=== PATIENT | female | born 1985 | race Caucasian/White ===

== ENCOUNTER 2021-07-02 11:53 | Observation (INO) | payer OTHER, SELFPAY ==
--- NOTE | ~2021-07-02 | XR_ITS ---
EXAMINATION: XR abdomen/kub 1V DATE: 07/04/2021 05:44 INDICATION: Abdominal pain TECHNIQUE: A supine view of the abdomen was obtained. COMPARISON: 07/03/2021 FINDINGS: Cholecystectomy clips in right upper quadrant. Suture lines in the left upper quadrant likely related to prior gastric bypass procedure. Small amount of gas scattered throughout nondilated large and sma ll bowel. IMPRESSION: 1. Nonspecific bowel gas pattern with no dilated gas-filled bowel to suggest obstruction. Reviewed, dictated and finalized at location A. INSPECTOR IMPRESSION: 1. Nonspecific bowel gas pattern with no dilated gas-filled bowel to suggest ob struction.
--- NOTE | ~2021-07-02 | XR_ITS ---
XR chest 1V portable 07/03/2021 15:04 Indication: Shortness of breath. Increasing oxygen requirement. Procedure: AP portable chest Comparison: No prior studies for comparison. Findings: Heart size normal. There is subtle left basilar airspace disease. No edema, pleural effusio n or pneumothorax. No acute osseous abnormality. Impression: 1: Subtle left basilar airspace disease which may represent atelectasis or developing pneumonia. Reviewed, dictated and finalized at location A. SEAMER Impression: 1: Subtle left basilar airspace disease which may represent atelectasis or deve loping pneumonia.
--- NOTE | ~2021-07-02 | XR_ITS ---
EXAMINATION: XR abdomen/kub 1V INDICATION: Small bowel obstruction TECHNIQUE: Supine views of the abdomen were obtained on 2 radiographs. COMPARISON: CT from yesterday FINDINGS: No definitely dilated loops of bowel are identified. The mid abdomen is relatively gasless which could reflect fluid-filled loops of bowel. Surgical changes are noted in the stomach. There are cholecystectomy clips. Contrast from yesterday's CT examination opacifies the urinary bladder. No fr ee intraperitoneal gas is identified. The visualized lung bases are clear. IMPRESSION: 1. No definitely dilated loops of bowel identified. Relatively gasless mid abdomen could reflect flui d-filled loops of bowel Reviewed, dictated and finalized at location A. DUMPER IMPRESSION: 1. No definitely dilated loops of bowel identified. Relatively gasless mid abdo men could reflect fluid-filled loops of bowel
--- NOTE | ~2021-07-02 | CT_ITS ---
EXAMINATION: CT abdomen pelvis w con DATE: 07/02/2021 15:31 INDICATION: Abdominal pain and nausea TECHNIQUE: Computed tomography (CT) of the abdomen and pelvis was performed with 100 cc Omnipaque 350 intravenous contrast. The dose-length product was 236.64 mGy-cm. Automated exposure control and iter ative reconstruction technique were employed. COMPARISON: None. FINDINGS: Lung bases are unremarkable. No significant pleural or pericardial effusion. Heart size is normal. There are surgical changes of gastric bypass surgery. There are cholecystectomy clips. There is a surgical anastomotic site in the right lower abdomen. There are mildly distended small bowel loo ps in the upper abdomen anteriorly. Possible transition in the right lower abdomen anastomotic site. Cannot exclude partial small bowel obstruction. Status post cholecystectomy. The liver, spleen, pancreas, adrenal glands and kidneys are unremarkable . No significant lymphadenopathy. No significant vascular abnormality. IMPRESSION: 1. Fluid-filled distended small bowel loops in the upper abdomen with possible transition in right lo wer abdominal surgical anastomotic site, suspicious for at least partial obstruction. Reviewed, dictated and finalized at location A. E ENGINEER IMPRESSION: 1. Fluid-filled distended small bowel loops in the upper abdomen with possible transition in right lower abdominal surgical anastomotic site, suspicious for a t least partial obstruction.
[2021-07-02 11:58] VITALS: BP 132/55; PULSE 77; RESP 16; TEMP 36.4; O2SAT 100
[2021-07-02 12:46] LABS: Basophils Percent Auto 0.4 % (0.2-1.2); Eosinophils Percent Auto 0.7 % (0-4.4); Hematocrit 39.1 % (37.0-47.0); Hemoglobin 13.4 g/dL (12.0-15.0); Immature Granulocyte Absolute 0.01 K/mm3 (0.00-0.031); Immature Granulocyte Percent A 0.2 % (0-0.5); Lymphocytes Absolute Auto 0.66 K/mm3 (0.9-3.2); Lymphocytes Percent Auto 14.7 % (18.3-44.2); Mean Corpuscular HGB Conc 34.3 g/dl (32-36); Mean Corpuscular Hemoglobin 29.6 pg (26-34); Mean Corpuscular Volume 86.3 fl (80-100); Mean Platelet Volume 8.7 fl (7.4-10.4); Monocytes Absolute Auto 0.2 K/mm3 (0.1-0.6); Monocytes Percent Auto 4.7 % (2.6-8.5); Neutrophils Absolute Auto 3.6 K/mm3 (1.3-6.7); Neutrophils Percent Auto 79.3 % (45.5-73.1); Platelet Count Result 186 k/mm3 (150-375); Red Blood Count 4.53 M/mm3 (4.2-5.4); Red Cell Distribution Width 12.7 % (11.5-14.5); White Blood Count 4.5 K/mm3 (4.5-10.0)
[2021-07-02] MEDS: PROMETHAZINE HCL 25 MG/ML AMPUL 12.5 MG IV PUSH ×2 (12:48→20:37)
[2021-07-02] MEDS: SODIUM CHLORIDE 0.9% IV 1,000 ML 999 ML IV CONT (12:48)
[2021-07-02 13:00] LABS: Alanine Aminotransferase 18 U/L (4-35); Albumin Level 4.7 g/dL (3.5-5.1); Alkaline Phosphatase 56 U/L (38-126); Anion Gap 12 mmol/L (8-16); Aspartate Amino Transferase 29 U/L (14-36); Bilirubin,Total 1.5 mg/dL (0.2-1.3); Blood Urea Nitrogen 18 mg/dL (7-17); Carbon Dioxide 25 mmol/L (22-30); Chloride 102 mmol/L (98-107); Estimated CRCL calculation 99 ml/min; Estimated Glomerular Filt Rate > 60; Glucose 109 mg/dL (65-110); Lipase 107 U/L (23-300); Potassium 3.5 mmol/L (3.4-5.0); Sodium 139 mmol/L (137-145)
--- NOTE | 2021-07-02 14:02 | PC.NURSE ---
Went into patient room to give anxiety medication per patient request. Patient was resting with eyes closed and appears comfortable. Medication not given at this time and returned to [facility].
[2021-07-02 14:48] LABS: Add Urine Microscopic? YES; Appearance Urine Cloudy (Clear); Bacteria Urine Trace /hpf; Bilirubin Urine Negative (Negative); Blood Urine Negative (Negative); Color Urine Yellow (Yellow); Glucose Urine UA Negative (Negative); Ketones Urine 2+ mg/dL (Negative); Leukocyte Esterase Ur Negative LEU/UL (Negative); Mucus Urine Few /lpf; Nitrate Urine Negative (Negative); Protein Urine 1+ mg/dL (Negative); Specific Grav Ur 1.021 (1.001-1.035); Squamous Epithelial Cell Urine Few /hpf (Few); WBC Urine 0-3 /hpf
--- NOTE | 2021-07-02 15:58 | ED.GENADULT ---
HPI - General Adult General Chief complaint: Unspecified Stated complaint: vomiting Time Seen by Provider: 07/02/21 12:12 History of Present Illness HPI narrative: Patient is a 35-year-old female who presents ER with epigastric pain and vomiting. Began today. Reports she has had episodes of this over the last 4 years. She had a Aamir-en-Y surgery in the past. She reports she was hospitalized last month at [facility] in which she was diagnosed with gastric and esophageal ulcers. She was placed on Protonix and sucralfate. Reports she had an EGD 2 weeks ago that showed resolution of the ulcerations. No fevers or chills or sweats. Symptoms not alleviated by home Zofran administration. Last bowel movement and last passage of gas was yesterday. Related Data Allergies Allergy/AdvReac Type Severity Reaction Status Date / Time amoxicillin Allergy Rash Verified 07/02/21 11:57 azithromycin Allergy Unknown Verified 07/02/21 11:57 Review of Systems Review of Systems: All systems reviewed & are unremarkable except as noted in HPI and below Constitutional: Constitutional: Denies chills, Denies fatigue and Denies fever(s) ENT: Denies nasal congestion and Denies sore throat Respiratory: Respiratory: Denies cough and Denies dyspnea Gastrointestinal: Gastrointestinal: Reports abdominal pain, Reports GI cramping, Denies diarrhea, Reports nausea and Reports vomiting Genitourinary: Genitourinary: Denies dysuria, Denies flank pain and Denies urinary urgency Psychiatric: Psychiatric: Reports anxiety PMFSH Past Medical History Medical History (Updated 07/02/21 @ 18:31 by Joseph Lazo MD) Anxiety Gastric ulcer Surgical History Surgical History (Updated 07/02/21 @ 18:31 by Joseph Lazo MD) History of Aamir-en-Y gastric bypass Social History Social History (Updated 07/02/21 @ 18:32 by Joseph Lazo MD) Smoking status: Never smoker Exam Narrative: GENERAL: Uncomfortable-appearing, well-nourished, and in mild distress. HEAD: Normocephalic, atraumatic. EYES: PERRL and EOMI. ENT: Mucous membranes moist. CHEST: Clear to auscultation. No respiratory distress. HEART: Regular rate and rhythm. Normal peripheral pulses. ABDOMEN: Soft, epigastric tenderness, nondistended. EXTREMITIES: Normal range of motion. No edema. SKIN: Warm, dry, no rash. NEURO: Alert and oriented x3. PSYCH: Normal mood and affect. Course Course Emergency Course: Patient informed of imaging results. Discussed case with Dr. Reeves. He is evaluated patient in the ER. NG tube attempted but patient did not tolerate the procedure and it can never be passed beyond the nasopharynx. Patient will be kept n.p.o., will be hydrated, and be given anxiety/antiemetic medication. Vital Signs Vital signs: Vital Signs Temperature 97.6 F 07/02/21 11:58 Pulse Rate 77 07/02/21 11:58 Respiratory Rate 16 07/02/21 11:58 Blood Pressure 132/55 L 07/02/21 11:58 Pulse Oximetry 100 07/02/21 11:58 Temperature 97.9 F 07/02/21 18:22 Pulse Rate 58 L 07/02/21 18:22 Respiratory Rate 14 07/02/21 18:22 Blood Pressure 104/58 L 07/02/21 18:22 Pulse Oximetry 100 07/02/21 18:22 Medical Decision Making Vital Signs Vital Signs: Vital Signs Temperature 97.6 F 07/02/21 11:58 Pulse Rate 77 07/02/21 11:58 Respiratory Rate 16 07/02/21 11:58 Blood Pressure 132/55 L 07/02/21 11:58 Pulse Oximetry 100 07/02/21 11:58 Temperature 97.9 F 07/02/21 18:22 Pulse Rate 58 L 07/02/21 18:22 Respiratory Rate 14 07/02/21 18:22 Blood Pressure 104/58 L 07/02/21 18:22 Pulse Oximetry 100 07/02/21 18:22 Lab Data Result diagrams: 07/02/21 12:41 07/02/21 12:41 Labs: Lab Results 07/02/21 07/02/21 07/02/21 Range/Units 12:41 12:41 14:23 WBC 4.5 (4.5-10.0) K/mm3 RBC 4.53 (4.2-5.4) M/mm3 Hgb 13.4 (12.0-15.0) g/dL Hct 39.1 (37.0-47.0) % MCV 86.3 (80-100) fl MCH 29.6
[2021-07-02 16:35] VITALS: BP 118/79; PULSE 54; RESP 14; O2SAT 100
[2021-07-02] MEDS: ONDANSETRON INJ 4 MG/2 ML VIAL IV PUSH (17:10)
[2021-07-02] MEDS: LORazepam INJ (*CRX) 2 MG/ML VIAL 0.5 MG IV PUSH (17:38)
--- NOTE | 2021-07-02 18:00 | PC.NURSE ---
Attempted to place NG tube in patient at this time per order. Patient continues to pull away prior to this nurse being able to place NG tube. Patient reports it hurts and she is unable to do it. Dr. Lazo made aware of this.
--- NOTE | 2021-07-02 18:03 | PM.CNGS ---
Assessment and Plan Assessment and plan (1) Partial small bowel obstruction: Code(s): K56.600 - Partial intestinal obstruction, unspecified as to cause Status: Acute Assessment and Plan: admit for observation, bowel rest, may need NG decompression, IV hydration, repeat imaging in am History of Present Illness Consult details Consult date: 07/02/21 Reason for consult: abdominal pain Requesting physician: Jalil Villa MD Narrative: The patient is a 35-year-old female presenting to the emergency department complaining severe crampy abdominal pain. The patient reports associated nausea and anorexia. Patient reports pain is mostly diffuse in nature and comes in waves. The patient denies any emesis however has been having dry heaves. The patient has a history of a Aamir-en-Y gastric bypass in the past. The patient reports milder similar symptom in the past but nothing this severe. The patient reports she had a normal bowel movement yesterday. Review of Systems Constitutional: Constitutional: Reports anorexia, Reports body ache(s), Denies chills, Reports fatigue, Denies fever(s), Reports lethargy, Reports malaise, Reports poor appetite, Reports weakness, Denies weight gain and Denies weight loss Eyes: Eyes: Reports no additional eye complaints ENT: Reports system reviewed and no additional complaints, except as documented Cardiovascular: Cardiovascular: Reports no additional cardiovascular complaints Respiratory: Respiratory: Reports no additional respiratory complaints Gastrointestinal: Gastrointestinal: Reports as per HPI, Reports abdominal pain, Reports belching, Reports bloating, Denies change in stool character, Reports GI cramping, Reports early satiety, Reports loose stools, Reports nausea and Denies vomiting Genitourinary: Genitourinary: Reports no additional female genitourinary complaints Musculoskeletal: Musculoskeletal: Reports no additional musculoskeletal complaints Integumentary/Breasts: Skin/Breast: Reports system reviewed and no additional complaints, except as docu Neurologic: Reports system reviewed and no additional complaints, except as documented Psychiatric: Psychiatric: Reports no additional psychiatric complaints Endocrine: Endocrine: Reports no additional endocrine complaints Hematologic/Lymphatic: Hematologic/Lymphatic: Reports no additional hematologic/lymphatic complaints Allergic/Immunologic: Allergic/Immunologic: Reports no additional allergic/immunologic complaints PMFSH Comments PMH - h/o gastric bypass Surgical history - gastric bypass, cholecystectomy FH - no FH colorectal cancers, IBD SH - no tob, illicit drug use Meds Home Medications and Allergies Allergies Allergy/AdvReac Type Severity Reaction Status Date / Time amoxicillin Allergy Rash Verified 07/02/21 11:57 azithromycin Allergy Unknown Verified 07/02/21 11:57 Vital Signs Vital Signs - 24 hr 07/02/21 11:58 07/02/21 16:35 Temperature 36.4 C Pulse Rate 77 54 L Respiratory Rate 16 14 Blood Pressure 132/55 L 118/79 Pulse Oximetry 100 100 Exam Const: General: cooperative, alert, awake, Physically active, acute distress moderate, ill appearing and uncomfortable Nutritional Appearance: average body habitus Orientation/consciousness: patient oriented x3 Limitations: no limitations HENMT: Head: normal to inspection, No palpable skull fracture present, normocephalic and atraumatic Ears: hearing grossly normal bilaterally General nose exam: Normal external nose present Face and sinus: normal facial exam Mouth: Yes Normal oral and palatal mucosa present and Yes moist mucous membranes Eyes: General: appearance normal, both eyes and all related structures Pupils: Equal, round and reactive pupils present EOM: EOMs intact bilaterally Neck: Neck: normal visual inspection, full ROM and no lymphadenopathy Chest: Chest palpation & inspection: normal inspection of the chest Resp: Effort & Inspect
[2021-07-02 18:22] VITALS: BP 104/58; PULSE 58; RESP 14; TEMP 36.6; O2SAT 100
--- NOTE | 2021-07-02 18:45 | ADMGEN ---
This patient, Penny Yusuf, was admitted to [facility] Surg Room 313-01 at 1711. Patient/family oriented to hospital policies and general routines including ID bracelet, bed and alarms, visiting hours, pain management, procedures, bathroom and other care routines, personal items, smoking policy, room service/diet, and visiting hours. Information on how to activate the Rapid Response Team has been discussed. Patient/Family are encouraged to report perceived risks to care and to ask questions if they do not understand what they are told or what they should do.
[2021-07-02 19:01] VITALS: BMI 23.1
--- NOTE | 2021-07-02 19:45 | PM.IMHP ---
H&P: HPI History of Present Illness Date/Time: 07/02/21 19:45 Chief Complaint: Abdominal pain. Narrative: This is a very pleasant 35-year-old female with history of Aamir-en-Y gastric bypass who presented to the emergency department earlier today for evaluation of abdominal pain. She had gastric bypass in 2018 and since that time she has had intermittent issues with severe abdominal pain prompting her to be evaluated by several specialists with no definitive explanation. These episodes can last anywhere from 4 hours to multiple days at a time. Her pain typically starts in the epigastric/low chest region and she describes it as ?excruciating? although she has a difficult time further qualifying. She has been trialed on multiple medications including but not limited to nitroglycerin for possible esophageal spasms, oxycodone, PPIs, and antispasmodics without much benefit. 2 or 3 times a week she will smoke marijuana which seems to help the discomfort and nausea somewhat. She had her gallbladder removed not long ago with hopes that this would help her pain but [place] it did not. At time she is afraid to eat, worried that it may cause her pain to return. More recently she was hospitalized at [place] within the past 1 month at which time she had an upper endoscopy which demonstrated esophageal and gastric ulcerations and/or erosions for which she was started on sucralfate with resolution of said abnormalities on repeat EGD within the last couple of weeks. 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 She began not feeling well in the affirmative action specialist hours with recurrent pain as detailed above, nausea, and dry heaves. She was able to rest only a bit overnight and she attempted to go in to work this morning however she began vomiting with worsening pain and thus she was brought in today for evaluation. CT of the abdomen and pelvis showed fluid-filled distended small bowel loops in the upper abdomen with possible transition in the right lower abdominal surgical anastomotic site, suspicious for at least partial obstruction, and she is being admitted in this setting. NG tube insertion was attempted however the patient was not able to tolerate that. She continues to have discomfort however she has not had any further nausea, dry heaves, or vomiting. Her abdomen is not distended or bloated however she thinks that if she was able to belch that her pain may feel better. She had a bowel movement yesterday which was lose though she denies blood and mucus in the stool. Of note, the patient was recently referred to the [facility] and she has an upcoming appointment in August 2021. Review of Systems Review of Systems: Twelve systems were reviewed. No fever, chills, or sweats. No cold or flu symptoms. She denies cough and shortness of breath. No hematemesis, melena, or hematochezia. She denies significant GERD like symptoms. Except as documented, all other systems were reviewed and are negative. [facility] Past Medical History Medical History (Updated 07/02/21 @ 22:04 by Lucia Lunsford PA-C) Anxiety Gastric ulcer Surgical History Surgical History History of cholecystectomy History of incisional hernia repair x2 History of Aamir-en-Y gastric bypass (2018) Family History Family History (Updated 07/02/21 @ 22:00 by Lucia Lunsford PA-C) Mother Gastrointestinal complaints Social History Social History (Updated 07/02/21 @ 22:00 by Lucia Lunsford PA-C) Social History: The patient lives with her and 5 in 6-year-old children in [place]. 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 Former smoker. Smokes marijuana 2 to 3 nights a week. Drinks perhaps 1 to 2 alcoholic beverages a month. She designates her as her surrogate decision maker and she wishes to be a full code.
[2021-07-02 20:15] VITALS: RESP 14; O2SAT 98
[2021-07-02] MEDS: MORPHINE SULFATE (*CRX) 4 MG/ML INJ IV PUSH (20:37)
[2021-07-02] MEDS: SODIUM CHLORIDE 0.9% IV 1,000 ML 125 ML IV CONT (20:38)
[2021-07-02 21:37] VITALS: BP 110/64; PULSE 74; RESP 18; TEMP 36.4; O2SAT 99
[2021-07-02 23:11] VITALS: O2SAT 99
[2021-07-03 05:24] VITALS: BP 103/51; PULSE 69; RESP 18; TEMP 36.9; O2SAT 100
--- NOTE | 2021-07-03 08:27 | PM.PNGS ---
Progress Note: A&P Assessment and Plan (1) Partial small bowel obstruction: Code(s): K56.600 - Partial intestinal obstruction, unspecified as to cause Status: Acute Assessment and Plan: much improved, will slowly start and ADAT, home if august diet and having normal bowel fxn Subjective Subjective Date/Time Seen: 07/03/21 08:27 feels much better this am, mild soreness but improved, no further N/V Review of Systems Review of Systems: All systems reviewed & are unremarkable except as noted in HPI and below Exam Const: General: cooperative, comfortable and no acute distress Nutritional Appearance: average body habitus Resp: Effort & Inspection: normal respiratory effort Auscultation: clear to auscultation bilaterally Cardio: Rate: regular rate Rhythm: regular rhythm GI: Inspection: normal to inspection, non-distended and incision GI Palp: Yes Soft to palpation, Yes Tenderness to palpation present (GI), No Guarding due to palpation present (GI) and No Rigid due to palpation Other: minimal TTP, improved Objective Data Vital Signs Vital Signs: Vital Signs - 24 hr 07/02/21 11:58 07/02/21 16:35 07/02/21 18:22 Temperature 36.4 C 36.6 C Pulse Rate 77 54 L 58 L Respiratory Rate 16 14 14 Blood Pressure 132/55 L 118/79 104/58 L Pulse Oximetry 100 100 100 07/02/21 20:15 07/02/21 21:37 07/02/21 23:11 Temperature 36.4 C Pulse Rate 74 Respiratory Rate 14 18 Blood Pressure 110/64 Pulse Oximetry 98 99 99 07/03/21 05:24 Temperature 36.9 C Pulse Rate 69 Respiratory Rate 18 Blood Pressure 103/51 L Pulse Oximetry 100 Intake/Output Intake/Output: Intake & Output 06/30/21 07/01/21 07/02/21 07/03/21 23:59 23:59 23:59 23:59 Intake Total 1000 Balance 1000 Meds/Results Medications: Active Medications Generic Name Dose Route Start Last Admin Trade Name Freq PRN Reason Stop Dose Admin Acetaminophen 1,000 mg in 100 mls @ 400 mls/hr 07/02/21 16:41 Ofirmev 1,000 Mg Ivpb IVPB 07/03/21 16:40 Q6H PRN Mild Pain (1-3) or Fever Sodium Chloride 1,000 mls @ 75 mls/hr 07/02/21 16:45 07/02/21 20:38 Normal Saline Iv IV CONT 125 mls/hr .[id number] ESTEBAN Administration Lorazepam 0.5 mg 07/02/21 16:45 07/02/21 17:38 Lorazepam Inj (*Crx) 2 Mg/Ml Vial IV PUSH 0.5 mg Q6H PRN Administration Anxiety Morphine Sulfate 2 mg 07/02/21 22:09 Morphine Sulfate (*Crx) 2 Mg/Ml Inj IV PUSH Q4H PRN Pain Rated 7-10 Pantoprazole Sodium 40 mg 07/03/21 09:00 Pantoprazole Sodium Iv 40 Mg Vial IV PUSH QAM ESTEBAN Promethazine HCl 12.5 mg 07/02/21 16:41 07/02/21 20:37 Promethazine Hcl 25 Mg/Ml Ampul IV PUSH 12.5 mg Q6H PRN Administration Nausea Radiology Results: ITS Impressions Abdomen/Pelvis CT 07/02/21 15:34 IMPRESSION: 1. Fluid-filled distended small bowel loops in the upper abdomen with possible transition in right lower abdominal surgical anastomotic site, suspicious for at least partial obstruction. Abdomen X-Ray 07/03/21 07:57 IMPRESSION: 1. No definitely dilated loops of bowel identified. Relatively gasless mid abdomen could reflect fluid-filled loops of bowel Labs Labs: Laboratory Results - last 24 hr 07/02/21 07/02/21 07/02/21 12:41 12:41 14:23 WBC 4.5 RBC 4.53 Hgb 13.4 Hct 39.1 MCV 86.3 MCH 29.6 MCHC 34.3 RDW 12.7 Plt Count 186 MPV 8.7 Immature Gran % (Auto) 0.2 Neut % (Auto) 79.3 H Lymph % (Auto) 14.7 L [place] % (Auto) 4.7 Eos % (Auto) 0.7 Baso % (Auto) 0.4 Lymph # (Auto) 0.66 L [place] # (Auto) 0.2 Eos # (Auto) 0.0 Baso # (Auto) 0.0 Abs Immat Gran (auto) 0.01 Absolute Neuts (auto) 3.6 Absolute Nucleated RBC 0.0 Nucleated RBC % 0.0 Sodium 139 Potassium 3.5 Chloride 102 Carbon Dioxide 25 Anion Gap 12 BUN 18 H Creatinine 0.60 L Estim Creat Clear Calc 99 Estimated GFR > 60 Glucose
[2021-07-03] MEDS: SODIUM CHLORIDE 0.9% IV 1,000 ML 125 ML IV CONT (08:57)
[2021-07-03] MEDS: PANTOPRAZOLE SODIUM IV 40 MG VIAL IV PUSH (08:58)
--- NOTE | 2021-07-03 10:59 | PM.IMPN ---
Progress Note: A&P Assessment and Plan (1) Partial small bowel obstruction: Code(s): K56.600 - Partial intestinal obstruction, unspecified as to cause Status: Acute Assessment and Plan: Patient was found to have a partial small-bowel obstruction. Patient was unable to tolerate NG tube insertion. KUB this morning showed No definitely dilated loops of bowel identified. Relatively gasless mid abdomen could reflect fluid-filled loops of bowel She otherwise has been feeling well without any abdominal distension, no more nausea, vomiting at this time. Denies passing any gas or bowel movements today. She tried drinking a little bit of broth but had some abdominal symptoms and stopped, with relief of her symptoms. She states she would like some substance to her diet because she is ?hungry?. I will switch her to a full liquid diet. I told her do eat slowly and pay attention to her body in symptoms and if she has any concerns she needs to stop eating. Otherwise we will keep her on a full liquid diet until tomorrow Surgery evaluated the patient and did not recommend anything but conservative management at this time Continue conservative management. Continue light IV fluid hydration until she starts eating more consistently. (2) Gastroesophageal reflux disease: Code(s): K21.9 - Gastro-esophageal reflux disease without esophagitis Status: Acute Assessment and Plan: PPI IV (3) Anxiety: Code(s): F41.9 - Anxiety disorder, unspecified Status: Chronic Assessment and Plan: Switch to p.o. anxiety medications as needed Time Spent With Patient Time with patient: 25 - 35 minutes Subjective Date/time seen: 07/03/21 10:59 Interval history: Date of service 07/03/2021: Patient reports slight improvement. Currently she was sleeping and not having any pain, nausea or vomiting. She states she was you had some of her clear liquid diet in your stomach began ?gurgling?. She stopped eating and did not have any worsening symptoms. She denies passing any gas or bowel movements. Denies fever, chills, chest pain, shortness of breath, cough, leg swelling, calf pain, or any other symptoms at this time. Review of Systems Review of Systems: All systems reviewed & are unremarkable except as noted in HPI and below Exam Narrative: General: 35-year-old woman laying flat in bed sleeping. Easily arousable. Appears comfortable. In no acute distress. Skin: No jaundice or cyanosis. Good skin turgor. Neck: Full range of motion. Supple. Respiratory: Lungs are clear to auscultation bilaterally. No bony chest wall tenderness. Cardiovascular: The heart has a regular rate and rhythm without murmur. Lower extremities: No lower extremity edema. Distal pulses are easily palpated. No calf tenderness to palpation. Gastrointestinal: Active bowel sounds in the bilateral upper quadrants. The abdomen is otherwise soft, nontender and nondistended at this time. Psychiatric: Lucid and oriented. Memory intact. Neurologic: No focal deficits. Speech is clear. No facial drooping. Objective Data Vital Signs Vital Signs: Vital Signs - 24 hr 07/02/21 11:58 07/02/21 16:35 07/02/21 18:22 Temperature 97.6 F 97.9 F Pulse Rate 77 54 L 58 L Respiratory Rate 16 14 14 Blood Pressure 132/55 L 118/79 104/58 L Pulse Oximetry 100 100 100 07/02/21 20:15 07/02/21 21:37 07/02/21 23:11 Temperature 97.6 F Pulse Rate 74 Respiratory Rate 14 18 Blood Pressure 110/64 Pulse Oximetry 98 99 99 07/03/21 05:24 Temperature 98.5 F Pulse Rate 69 Respiratory Rate 18 Blood Pressure 103/51 L Pulse Oximetry 100 Intake/Output Intake/Output: Intake & Output 06/30/21 07/01/21 07/02/21 07/03/21 23:59 23:59 23:59 23:59 Intake Total 1000 1000 Balance 1000 1000 Meds/Results Medications: Active Medications Generic Name Dose Route Start Last Admin Trade Name Freq PRN Reason Stop Dose Admin Acetami
[2021-07-03] MEDS: ACETAMINOPHEN 325 MG TABLET 650 MG PO (12:57)
[2021-07-03] MEDS: ALPRAZolam (*CRX) 0.5 MG TABLET PO ×2 (13:03→23:31)
[2021-07-03 14:00] VITALS: BP 103/59; PULSE 67; RESP 18; TEMP 37.9; O2SAT 100
[2021-07-03 14:32] VITALS: TEMP 38
[2021-07-03] MEDS: CYANOCOBALAMIN 500 MCG TABLET PO (16:47)
[2021-07-03] MEDS: SERTRALINE HCL 50 MG TABLET 100 MG PO (16:47)
[2021-07-03] MEDS: SODIUM CHLORIDE 0.9% IV 1,000 ML 75 ML IV CONT (21:03)
[2021-07-03 22:00] VITALS: BP 112/61; PULSE 59; RESP 18; TEMP 36.5; O2SAT 100
[2021-07-03] MEDS: traZODone HCL 50 MG TABLET PO (23:31)
[2021-07-04] VITALS: BP 115/63; PULSE 67; RESP 18; TEMP 36; O2SAT 99
[2021-07-04 00:44] VITALS: O2SAT 99
[2021-07-04 04:00] VITALS: BP 110/65; PULSE 77; RESP 18; TEMP 36.5; O2SAT 97
[2021-07-04 08:00] VITALS: O2SAT 99
[2021-07-04 08:03] LABS: Hematocrit 33.1 % (37.0-47.0); Hemoglobin 11.1 g/dL (12.0-15.0); Mean Corpuscular HGB Conc 33.5 g/dl (32-36); Mean Corpuscular Hemoglobin 29.4 pg (26-34); Mean Corpuscular Volume 87.6 fl (80-100); Mean Platelet Volume 8.9 fl (7.4-10.4); Platelet Count Result 160 k/mm3 (150-375); Red Blood Count 3.78 M/mm3 (4.2-5.4); Red Cell Distribution Width 12.4 % (11.5-14.5); White Blood Count 3.5 K/mm3 (4.5-10.0)
[2021-07-04 08:19] LABS: Alanine Aminotransferase 13 U/L (4-35); Albumin Level 3.2 g/dL (3.5-5.1); Alkaline Phosphatase 39 U/L (38-126); Anion Gap 11 mmol/L (8-16); Aspartate Amino Transferase 21 U/L (14-36); Bilirubin,Total 0.7 mg/dL (0.2-1.3); Blood Urea Nitrogen 13 mg/dL (7-17); Carbon Dioxide 19 mmol/L (22-30); Chloride 111 mmol/L (98-107); Estimated CRCL calculation 117 ml/min; Estimated Glomerular Filt Rate > 60; Glucose 47 mg/dL (65-110); Potassium 3.5 mmol/L (3.4-5.0); Sodium 141 mmol/L (137-145)
[2021-07-04 08:32] VITALS: BP 108/57; PULSE 82; RESP 14; TEMP 36.7; O2SAT 98
[2021-07-04] MEDS: PANTOPRAZOLE SODIUM IV 40 MG VIAL IV PUSH (09:08)
[2021-07-04 09:09] LABS: Glucose Point of Care 78 mg/dl (65-105)
[2021-07-04] MEDS: CYANOCOBALAMIN 500 MCG TABLET PO (09:54)
[2021-07-04] MEDS: SERTRALINE HCL 50 MG TABLET 100 MG PO (09:54)
[2021-07-04 11:02] LABS: Glucose Point of Care 86 mg/dl (65-105)
[2021-07-04] MEDS: SODIUM CHLORIDE 0.9% IV 1,000 ML 75 ML IV CONT (12:56)
--- NOTE | 2021-07-04 14:19 | PM.DS ---
DS: Admitting Diagnosis Discharge Date 07/04/21 Admitting Diagnosis sbo DS: Discharge Diagnosis Discharge Diagnosis (1) Partial small bowel obstruction: Code(s): K56.600 - Partial intestinal obstruction, unspecified as to cause Status: Acute (2) Gastroesophageal reflux disease: Code(s): K21.9 - Gastro-esophageal reflux disease without esophagitis Status: Acute (3) Anxiety: Code(s): F41.9 - Anxiety disorder, unspecified Status: Chronic (4) Fever: Code(s): R50.9 - Fever, unspecified Status: Acute (5) Person under investigation for COVID-19: Code(s): Z20.822 - Contact with and (suspected) exposure to COVID-19 Status: Acute (6) Leukopenia: Code(s): D72.819 - Decreased white blood cell count, unspecified Status: Acute (7) Hypoglycemia: Code(s): E16.2 - Hypoglycemia, unspecified Status: Acute (8) Anemia: Code(s): D64.9 - Anemia, unspecified Status: Acute DS: Summary Hospital Course Hospital Course: Dos 07/04/21 Patient is a 35-year-old female with a history of gastric bypass, cholecystectomy, abdominal pain, and gastric ulcer who presented emergency room for worsening abdominal pain. She states that she was having epigastric pain and vomiting and has had episodes like this over the last 4 years. She was diagnosed with a gastric ulcer and has underwent treatment and recently had an EGD and showed that this has improved. She was feeling okay but then started having problems and came into the emergency room on 07/02/21. Vitals were stable, temperature 97.6?, pulse 77, respiratory rate 16, blood pressure 132/55, pulse ox 100 on room air. Initial CBC within normal limits. BMP relatively normal. UA not consistent with UTI. Urine test negative. CT of the abdomen pelvis showed fluid-filled distended small bowel loops in the upper abdomen with possible transition in the right lower abdominal surgical anastomosis site suspicious for partial obstruction. She is admitted to the hospitalist service and made NPO. She improved significantly with this and was able to advance her diet with no further vomiting. Surgery was consulted and recommended conservative treatment. Day of discharge she was having bowel movements and feeling better in that regard. X-ray has improved and shows no persistent abnormalities. Pt discussed that she has chronic abdominal pain that is currently being worked up and she has an appointment at the [facility] in the next few months. She takes her multivitamin from her weight loss sx. She has has been in close contact with someone with COVID. She is not having respiratory symptoms at this time but CXR shows possible atelectasis or developing pna. suspect atelectasis due to her being hospitalized and laying in bed more but she has been having a fever (100.3) so very well could be COVID. I explained to her that I will call her with her PCR results and to quarantine until then. If the PCR is negative, I will prescribe her antibiotics she should follow up with her primary care physician. She agreed. Her lab abnormalities show a slightly low CO2 and a high chloride, likely due to IV fluids which should normalize now that they are stopped. She does not appear to be hyperventilating or overly sick. Her glucose was low this morning and she states she did not eat dinner at all last night and did not feel well this morning. It improved with eating breakfast and she has not had any further lows. leukopenia could be due to acute illness (possibly viral). She was educated about the worrisome signs and symptoms come back to emergency room for and will follow up with her primary care physician 1-2 weeks about this stay. Time Spent with Patient Time attestation: Total time spent providing and/or coordinating discharge services: 40 minutes Exam Narrative: General: Well developed well nourished patient in NAD HEENT: normocephal
[2021-07-04 14:40] VITALS: BP 104/67; PULSE 64; RESP 14; TEMP 37.9; O2SAT 99
--- NOTE | 2021-07-04 14:47 | PM.PNGS ---
Progress Note: A&P Assessment and Plan (1) Partial small bowel obstruction: Code(s): K56.600 - Partial intestinal obstruction, unspecified as to cause Status: Acute Assessment and Plan: Continues to clinically improve. Bowels moving. Tolerating a regular diet. Okay to discharge from a surgical standpoint. F/u only on an as needed basis. Additional Plan I have discussed the patient's case and plan of care with Dr. Reeves. Subjective Subjective Date/Time Seen: 07/04/21 14:47 Patient reports: no new complaints, feels better, tolerating a regular diet, flatus, bowel movement and afebrile Interval history: This is a 35 yo F who presented with findings on CT suggestive of SBO. She has been treated conservatively and slowly advanced on a diet. She is currently tolerating a low fiber diet today. Reports BM last night and this morning. No abdominal pain, nausea, or vomiting. No other complaints at this time. Review of Systems Review of Systems: All systems reviewed & are unremarkable except as noted in HPI and below Gastrointestinal: Gastrointestinal: Reports as per HPI and Reports no additional gastrointestinal complaints Exam Const: General: comfortable, no acute distress, alert and awake Orientation/consciousness: patient oriented x3 Resp: Effort & Inspection: normal respiratory effort Auscultation: clear to auscultation bilaterally Cardio: Rate: regular rate Rhythm: regular rhythm GI: Inspection: non-distended GI Palp: Yes Soft to palpation, Yes Tenderness to palpation present (GI) (very mild tenderness in RUQ, per pt much improved), No Guarding due to palpation present (GI) and No Rebound tenderness present Auscultation: normal bowel sounds Skin: General skin exam: normal color Neuro: General: moves all extremities and no focal motor deficits Extrem: General: no clubbing, cyanosis or edema Psych: Mental Status: mental status grossly normal Insight: Good insight present (Psych) Judgement: Good judgement present (Psych) Objective Data Vital Signs Vital Signs: Vital Signs - 24 hr 07/03/21 22:00 07/04/21 00:00 07/04/21 00:44 Temperature 97.7 F 96.8 F L Pulse Rate 59 L 67 Respiratory Rate 18 18 Blood Pressure 112/61 115/63 Pulse Oximetry 100 99 99 07/04/21 04:00 07/04/21 08:00 07/04/21 08:32 Temperature 97.7 F 98.1 F Pulse Rate 77 82 Respiratory Rate 18 14 Blood Pressure 110/65 108/57 L Pulse Oximetry 97 99 98 Intake/Output Intake/Output: Intake & Output 07/01/21 07/02/21 07/03/21 07/04/21 23:59 23:59 23:59 23:59 Intake Total 1000 2580 1989 Balance 1000 2580 1989 Meds/Results Medications: Active Medications Generic Name Dose Route Start Last Admin Trade Name Freq PRN Reason Stop Dose Admin Alprazolam 0.5 mg 07/03/21 10:27 07/03/21 23:31 Alprazolam (*Crx) 0.5 Mg Tablet PO 0.5 mg QID PRN Administration Anxiety Cyanocobalamin 500 mcg 07/03/21 11:00 07/04/21 09:54 Cyanocobalamin 500 Mcg Tablet PO 500 mcg DAILY ESTEBAN Administration Cyclobenzaprine HCl 5 mg 07/03/21 10:27 Cyclobenzaprine Hcl 5 Mg Tablet PO TID PRN Pain/spasm Dextrose 12.5 gm 07/04/21 08:44 Dextrose 50% 25 Gm/50 Ml Syringe IV PUSH PRN PRN Hypoglycemia Protocol Glucagon 1 mg 07/04/21 08:44 Glucagon For Inj 1 Mg Vial IM PRN PRN Hypoglycemia Protocol Glucose 15 gm 07/04/21 08:44 Glucose Oral Gel 15 Gm Of Glucse In 37.5 Gm Tube PO PRN PRN Hypoglycemia Protocol Acetaminophen 1,000 mg in 100 mls @ 400 mls/hr 07/03/21 15:03 07/03/21 21:02 Ofirmev 1,000 Mg Ivpb IVPB 07/04/21 15:02 Infused Q6H PRN Infusion MILD Pain or Fever Dextrose 1,000 mls @ 100 mls/hr 07/04/21 08:44 Dextrose 5% 1,000 Ml IVPB PRN PRN Hypoglycemia Protocol Ketorolac Tromethamine 15 mg 07/03/21 14:37 Ketorolac 15 Mg/Ml Vial (*Bkc) IV PUSH Q6H PRN Pain Rated 4-6 Pantopraz
[2021-07-04 20:05] LABS: SARS-CoV-2 RNA PCR Positive
--- NOTE | 2021-07-12 12:08 | PC.NURSE ---
BLood cx are negative
== END 2021-07-04 15:30 | disposition home or self-care (01) ==
LOC: ANHED 16:55 → ANH3MEDSUR 17:04
PROVIDERS: Physician Assistant; Admitting Provider Family Medicine; Emergency Provider Emergency Medicine; Visit Provider Internal Medicine
DX: U07.1 COVID-19 (principal); K56.600 Partial intestinal obstruction, unspecified as to cause; R10.9 Unspecified abdominal pain; K21.9 Gastro-esophageal reflux disease without esophagitis; F41.9 Anxiety disorder, unspecified; E16.2 Hypoglycemia, unspecified; D64.9 Anemia, unspecified; Z98.84 Bariatric surgery status; Z90.49 Acquired absence of other specified parts of digestive tract; Z87.891 Personal history of nicotine dependence
CPT/HCPCS: 36415; 71045; 74018; 74177; 80053; 81001; 81025; 82948; 83690; 85025; 85027; 87040; 96361; 96365; 96374; 96375; 96376; 99285; A9270; C9113; C9803; G0378; J0131; J2060; J2270; J2405; J2550; J7030; Q9967; U0003; U0005

== ENCOUNTER 2022-11-29 01:31 | Emergency (ER) | payer OTHER, SELFPAY ==
--- NOTE | ~2022-11-29 | CT_ITS ---
EXAMINATION: CT abdomen pelvis wo con DATE: 11/29/2022 04:56 INDICATION: Kidney stone. Back pain. TECHNIQUE: Computed tomography (CT) of the abdomen and pelvis was performed without intravenous contr ast. Automated exposure control and iterative reconstruction technique were employed. The dose-length product was 165.94 mGy-cm. COMPARISON: CT abdomen and pelvis 07/02/2021 FINDINGS: The visualized portions of the lung bases are clear without pneumonia or pleural effusion. The heart size is normal. No pericardial effusion. The liver and spleen are normal. There are changes of cholecystectomy. There are changes of gastric bypass procedure. The pancreas and adrenal glands a re normal. There are 1 mm and 3 mm stones in right kidney. There is mild focal volume loss in right k idney. There is mild right hydronephrosis and hydroureter. There is a 2 mm stone at right ureterovesi cular junction. Left kidney is normal. There are no dilated loops of bowel. The appendix is not visua lized. There are no pathologically enlarged lymph nodes. There is no free intraperitoneal fluid. Ther e is mild lumbar spondylosis. IMPRESSION: 1. 2 mm stone at right ureterovesicular junction with mild right hydronephrosis and hydroureter. 2. Small nonobstructing right kidney stones. Reviewed, dictated and finalized at location A.
[2022-11-29 01:37] VITALS: BP 138/96; PULSE 88; RESP 18; TEMP 36.4; O2SAT 100
[2022-11-29] MEDS: ONDANSETRON INJ 4 MG/2 ML VIAL IV PUSH (02:50)
[2022-11-29] MEDS: ACETAMINOPHEN 500 MG TABLET 1000 MG PO (02:50)
[2022-11-29] MEDS: HYDROmorphone HCL INJ (*CRX) 1 MG/ML SYR 0.5 MG IV PUSH (02:56)
[2022-11-29] MEDS: FAMOTIDINE 20 MG/2 ML VIAL (03:55)
[2022-11-29] MEDS: KETOROLAC 30 MG/ML VIAL (*BKC) (04:09)
--- NOTE | 2022-11-29 04:57 | ED.GENADULT ---
HPI - General Adult General Chief complaint: Back Pain/Injury Stated complaint: R sided back pain Time Seen by Provider: 11/29/22 02:04 History of Present Illness HPI narrative: This is a 37-year-old female presenting ED with a chief complaint of right flank pain. It has been going on intermittently for 2 days but at 1:00 a.m. became severe. It is a sharp pain that radiate into her abdomen. Ten on 10 intensity and comes and goes. She has never experienced pain like this before there are no exacerbating or relieving factors. She has had several episodes of nausea vomiting. She denies fever chills chest pain difficulty breathing dysuria, urinary urgency or frequency. She has no concern for STDs and has no vaginal discharge irritation Related Data Home Medications Medication Instructions Recorded Confirmed alprazolam 0.5 mg tablet 0.5 mg PO QID PRN Anxiety 07/02/21 07/02/21 calcium 500 mg tablet 500 mg PO DAILY 07/02/21 07/02/21 cyanocobalamin (vitamin B-12) 500 500 mcg PO DAILY 07/02/21 07/02/21 mcg tablet cyclobenzaprine 5 mg tablet 5 mg PO TID PRN Pain 07/02/21 07/02/21 dextroamphetamine-amphetamine 20 20 mg PO QPM 07/02/21 07/02/21 mg tablet dextroamphetamine-amphetamine 20 40 mg PO QAM 07/02/21 07/02/21 mg tablet multivitamin 1 tablet PO DAILY 07/02/21 07/02/21 ondansetron 4 mg disintegrating 4 mg PO Q4H PRN Nausea 07/02/21 07/02/21 tablet pantoprazole 40 mg tablet,delayed 40 mg PO DAILY 07/02/21 07/02/21 release sertraline 100 mg tablet 100 mg PO DAILY 07/02/21 07/02/21 trazodone 50 mg tablet 50 mg PO HS 07/02/21 07/02/21 sucralfate 1 gram tablet 11/29/22 Allergies Allergy/AdvReac Type Severity Reaction Status Date / Time amoxicillin Allergy Rash Verified 11/29/22 01:48 azithromycin Allergy Unknown Verified 11/29/22 01:48 PMFSH Past Medical History Medical History Anxiety Gastric ulcer Surgical History Surgical History History of cholecystectomy History of incisional hernia repair x2 History of Aamir-en-Y gastric bypass (2018) Family History Family History Mother Gastrointestinal complaints Social History Social History Social History: The patient lives with her and 5 in 6-year-old children in [place]. 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 Former smoker. Smokes marijuana 2 to 3 nights a week. Drinks perhaps 1 to 2 alcoholic beverages a month. She designates her as her surrogate decision maker and she wishes to be a full code. Exam Narrative: APPEARANCE: patient appears uncomfortable Head: atraumatic. EYES: EOMI, NOSE: Atraumatic NECK: Trachea midline RESPIRATORY: No increased rate of breathing CARDIOVASCULAR: RRR, ABDOMINAL: Non-distended MUSCULOSKELETAl: right CVA tenderness, abdomen is soft nontender no guarding NEURO: Alert. Moving 4/4 extremities SKIN:: Warm, dry. Normal color PSYCHIATRIC: Normal affect Course Vital Signs Vital signs: Vital Signs Temperature 97.5 F L 11/29/22 01:37 Pulse Rate 88 11/29/22 01:37 Respiratory Rate 18 11/29/22 01:37 Blood Pressure 138/96 H 11/29/22 01:37 Pulse Oximetry 100 11/29/22 01:37 Oxygen Delivery Room Air 11/29/22 01:37 Temperature 97.5 F L 11/29/22 01:37 Pulse Rate 88 11/29/22 01:37 Respiratory Rate 18 11/29/22 01:37 Blood Pressure 138/96 H 11/29/22 01:37 Pulse Oximetry 100 11/29/22 01:37 Oxygen Delivery Room Air 11/29/22 01:37 Medical Decision Making MDM Narrative Medical decision making narrative: -Presentation: 29-year-old female presenting with right-sided flank pain. -DDX includes but is not limited to: UTI, kidney stone, MSK pain -Co-morbidities complicating care: weight reduction surgery -Social determinants of heal
[2022-11-29] MEDS: SODIUM CHLORIDE 0.9% IV 2,000 ML 999 ML IV CONT (05:04)
[2022-11-29 05:11] LABS: Basophils Percent Auto 0.7 % (0.2-1.2); Eosinophils Absolute Auto 0.1 K/mm3 (0-0.3); Eosinophils Percent Auto 1.6 % (0-4.4); Hematocrit 36.6 % (37.0-47.0); Hemoglobin 11.9 g/dL (12.0-15.0); Immature Granulocyte Absolute 0.02 K/mm3 (0.00-0.031); Immature Granulocyte Percent A 0.4 % (0-0.5); Lymphocytes Absolute Auto 1.04 K/mm3 (0.9-3.2); Lymphocytes Percent Auto 18.4 % (18.3-44.2); Mean Corpuscular HGB Conc 32.5 g/dl (32-36); Mean Corpuscular Hemoglobin 28.4 pg (26-34); Mean Corpuscular Volume 87.4 fl (80-100); Mean Platelet Volume 8.6 fl (7.4-10.4); Monocytes Absolute Auto 0.4 K/mm3 (0.1-0.6); Monocytes Percent Auto 6.7 % (2.6-8.5); Neutrophils Absolute Auto 4.1 K/mm3 (1.3-6.7); Neutrophils Percent Auto 72.2 % (45.5-73.1); Platelet Count Result 231 k/mm3 (150-375); Red Blood Count 4.19 M/mm3 (4.2-5.4); Red Cell Distribution Width 13.2 % (11.5-14.5); White Blood Count 5.6 K/mm3 (4.5-10.0)
[2022-11-29 05:13] LABS: Anion Gap 8 mmol/L (8-16); Blood Urea Nitrogen 16 mg/dL (7-17); Calcium 9.2 mg/dL (8.4-10.2); Carbon Dioxide 30 mmol/L (22-30); Chloride 103 mmol/L (98-107); Estimated CRCL calculation 93 ml/min; Estimated Glomerular Filt Rate > 60; Glucose 85 mg/dL (65-110); Sodium 141 mmol/L (137-145)
[2022-11-29 05:19] VITALS: BP 107/73; PULSE 75; RESP 15; O2SAT 97
[2022-11-29 05:21] LABS: Appearance Urine Clear (Clear); Bilirubin Urine 1+ (Negative); Blood Urine 3+ (Negative); Color Urine Yellow (Yellow); Glucose Urine UA Negative (Negative); Ketones Urine Negative (Negative); Leukocyte Esterase Ur Negative LEU/UL (Negative); Nitrate Urine Negative (Negative); Protein Urine 1+ mg/dL (Negative); Specific Grav Ur >= 1.030 (1.001-1.035); pH Urine 5.5 (5.0-9.0)
[2022-11-29 05:23] LABS: Add Urine Microscopic? YES; Bacteria Urine 1+ /hpf; RBC Urine 21-50 /hpf (0-2); WBC Urine 0-3 /hpf
--- NOTE | 2022-12-07 07:15 | PC.NURSE ---
LATE ENTRY This note is being entered to document information to the patient's record. The following information was omitted on [12/07/22], by [Therese Meza NS was given during downtime started at 0224 and stopped at 0424].
== END 2022-11-29 04:38 | disposition home or self-care (01) ==
PROVIDERS: Emergency Provider Emergency Medicine
DX: N13.2 Hydronephrosis with renal and ureteral calculous obstruction (principal); F41.9 Anxiety disorder, unspecified; Z98.84 Bariatric surgery status; Z87.442 Personal history of urinary calculi
CPT/HCPCS: 36415; 74176; 80048; 81001; 81025; 85025; 96361; 96374; 96375; 99284; A9270; J1170; J1885; J2405; J7030